=== PATIENT | female | born 1965 | race Native Hawaiian/Other Pacific Islander ===

== ENCOUNTER 2021-03-26 03:29 | Emergency (ER) | payer MEDICAID, SELFPAY ==
--- NOTE | 2021-03-26 03:33 | XRR_ITS ---
PROCEDURE INFORMATION: Exam: XR Chest Exam date and time: 03/26/2021 3:38 AM Age: 56 years old Clinical indication: Cough TECHNIQUE: Imaging protocol: XR of the chest. Views: 1 view. COMPARISON: CR Chest 1 view [id number] 10/02/2015 5:40 AM FINDINGS: Lungs: Unremarkable. No consolidation. Pleural spaces: Unremarkable. No pleural effusion. No pneumothorax. Heart/Mediastinum: There is mild cardiomegaly. Bones/joints: Unremarkable. XR/XR chest 1V portable [id number] IMPRESSION: Mild cardiomegaly.
[2021-03-26 03:38] VITALS: BP 204/158; PULSE 93; RESP 18; TEMP 37; O2SAT 100; BMI 27.3
--- NOTE | 2021-03-26 03:41 | ED_ITS ---
HPI - URI/Sore Throat General: Chief Complaint: General Medical Stated Complaint: cough Time Seen by Provider: 03/26/21 03:32 Source: patient Mode of arrival: ambulatory Limitations: no limitations History of Present Illness: HPI Narrative: 56-year-old female she states that she gets seasonal allergies and states she has been having allergy-like symptoms for the last month. States she had a postnasal drip along with rhinorrhea bilateral ear pain sore throat and a cough. She states that her cough is worsened over the month. She denies any production with her cough. She denies any fevers. Denies any sick contacts. She denies any worsening improving factors. She is in no distress here. She is hypertensive here but states she has not taken any of her blood pressure medicines in over a year. Associated symptoms: Reports ear or mastoid pain and nasal congestion; Deny abdominal pain, chills, chest pain, diarrhea, fever(s), headache(s), nausea or vomiting Review of Systems Const: Denies: fever(s), chills, body aches or change in appetite Eyes: Denies: blurry vision or eye discomfort ENMT: Reports: ear or mastoid pain, nasal discharge and nasal congestion Card: Denies: chest pain Resp: Reports: non-productive cough GI: Denies: abdominal pain, nausea, vomiting or diarrhea : Denies: dysuria Musc: Denies: neck pain or back pain Skin/Breast: Denies: rash Neuro: Denies: headache(s) Psych: Denies: depression Nik/Lymph: Denies: easy bruising All/Imm: Denies: urticaria Physical Exam Const: COMMON NORMALS: no acute distress, patient oriented x3 and healthy appearing HENMT: COMMON NORMALS: normocephalic, atraumatic, external ears normal, EAC's normal, TM's normal bilaterally and Normal external nose present HEAD & SCALP: normocephalic and atraumatic NOSE: Normal external nose present and Normal nares present EXTERNAL EAR: Yes external ears normal EXTERNAL AUDITORY CANAL: EAC's normal TYMPANIC MEMBRANE: TM's normal bilaterally THROAT: posterior oropharynx normal and uvula midline Eye: COMMON NORMALS: Equal, round and reactive pupils present and EOMs intact bilaterally PUPIL: Yes Equal, round and reactive pupils present Neck/C-Spine: COMMON NORMALS: full ROM and supple Chest: COMMONS NORMALS: normal inspection of the chest and normal palpation of entire chest wall Resp: COMMON NORMALS: normal respiratory effort, No retractions, No use of accessory muscles and clear to auscultation bilaterally AUSCULTATION: clear to auscultation bilaterally Cardio: COMMON NORMALS: regular rate, regular rhythm and No murmurs present (Cardio) RATE: regular rate RHYTHM: regular rhythm GI: COMMON NORMALS: Normal to inspection, nondistended, normoactive bowel sounds present, Soft to palpation, non-tender and no masses PALPATION: Yes Soft to palpation Extremity: COMMON NORMALS: normal to inspection and full ROM Neuro: COMMON NORMALS: patient oriented x3, moves all extremities and no focal motor deficits Psych: COMMON NORMALS: mental status grossly normal, Normal thought process present and cooperative THOUGHT PROCESS: Normal thought process present Skin: COMMON NORMALS: no rashes or lesions noted and no wounds GENERAL SKIN EXAM: no rashes or lesions noted Course Vital Signs: Vital signs: Vital Signs Temperature 98.6 F 03/26/21 04:22 Pulse Rate 89 03/26/21 04:22 Respiratory Rate 18 03/26/21 04:22 Blood Pressure 202/131 03/26/21 04:22 Pulse Oximetry 97 03/26/21 04:22 MDM - URI/Sore Throat MDM Narrative: Medical decision making narrative: Patient presents here with upper respiratory infection likely allergy rhinitis as well. She is well- appearing here and in no distress. Patient's x-ray here is negative. Patient given two doses of steroids here Kenalog and Decadron will prescribe her azithromycin for home. Patient is also hypertensive due to noncompliance. She has no related complaints. I will write her a new prescription for her blood pressure medicines that she was on and she is to take these and follow-up with PCP. Informed her is very important for her to take her medicines. She has no signs of pneumonia or heart failure here. She is in no distress. She is to return if worsening. Imaging Data^: CXR: Attestation: I personally reviewed and interpreted this imaging study as follows: My impression: No acute normality Discharge Plan Discharge Patient Disposition: Home Clinical Impression: Upper respiratory infection Qualifiers: URI type: unspecified URI Qualified Code(s): J06.9 - Acute upper respiratory infection, unspecified Hypertension Qualifiers: Hypertension type: essential hypertension Qualified Code(s): I10 - Essential (primary) hypertension Condition: Stable Prescriptions: New azithromycin 250 mg tablet See Rx Instructions .ROUTE .COMPLEX Qty: 6 RF: 0 carvedilol 12.5 mg tablet 12.5 mg PO BID Qty: 60 RF: 1 lisinopril 10 mg tablet 10 mg PO DAILY Qty: 60 RF: 1 furosemide 20 mg tablet 20 mg PO QAM Qty: 60 RF: 1 Discharge Orders: Discharge ED (Routine); Ordered 03/26/21 Ordered By: Dai Luna Referrals: Washington Gilman MD [Staff Physician] - 1-3 days Discharge Diet: Advance as tolerated Discharge Activity: Resume usual activity Patient Instructions: Upper Respiratory Infection (ED), Hypertension (ED) Coding Level of Care Code ED Radio Board Operator Announcer for Osmarg Fwd Exam Comprehensive
[2021-03-26] MEDS: FUROsemide 40 mg Tablet PO (03:59)
[2021-03-26] MEDS: metoprolol tartrate 25 mg Tablet PO (03:59)
[2021-03-26] MEDS: dexamethasone 10 mg/mL INJ IM (04:01)
[2021-03-26] MEDS: triamcinolone 40 mg/mL SDV 80 MG IM (04:20)
[2021-03-26 04:22] VITALS: BP 202/131; PULSE 89; RESP 18; TEMP 37; O2SAT 97
--- NOTE | 2021-03-26 10:36 | DCPLANNER ---
alteration manager had message to speak with patient about getting established with a primary care physician. alteration manager called phone number [phone], unable to speak with patient at this time, a voicemail was left for patient to return correctional casework specialist phone call.
== END 2021-03-26 04:22 | disposition home or self-care (01) ==
PROVIDERS: Emergency Provider Emergency Medicine
DX: J06.9 Acute upper respiratory infection, unspecified (principal); I10 Essential (primary) hypertension
CPT/HCPCS: 71045; 96372; 99283; J1100; J3301

== ENCOUNTER 2022-05-10 00:23 | Emergency (ER) | payer MEDICAID, SELFPAY ==
[2022-05-10 00:32] VITALS: BP 224/116; PULSE 103; RESP 18; TEMP 36.7; O2SAT 100; BMI 28.8
--- NOTE | 2022-05-10 01:09 | XRR_ITS ---
PROCEDURE INFORMATION: Exam: XR Chest Exam date and time: 05/10/2022 1:35 AM Age: 57 years old Clinical indication: Cough; Additional info: Cough congestion TECHNIQUE: Imaging protocol: Radiologic exam of the chest. Views: 1 view. COMPARISON: CR XR chest 1V portable [id number] 03/26/2021 3:34 AM FINDINGS: Lungs: Unremarkable. No consolidation. Pleural spaces: Unremarkable. No pleural effusion. No pneumothorax. Heart/Mediastinum: There is stable cardiomegaly. Bones/joints: Unremarkable. XR/XR chest 1V portable [id number] IMPRESSION: Cardiomegaly. No acute pulmonary abnormality.
--- NOTE | 2022-05-10 01:09 | ECG_ITS ---
[facility] Test Date: 2022-05-10 Pat Name: Abril Sosa Department: Room: Gender: Female Drum Attendant: : 1965 Requested By: Frank Mills Order Number: [id number] Vania MD: Henry Fragoso M.D. Measurements Intervals [place] Rate: 73 P: 61 FL: 186 QRS: 57 QRSD: 110 T: 44 QT: 411 QTc: 454 Interpretive Statements SINUS RHYTHM ANTERIOR MYOCARDIAL INFARCTION , OF INDETERMINATE AGE [40+ ms Q WAVE AND/OR ST/T ABNORMALITY IN V3/V4] Compared to ECG 09/28/2015 04:13:10 Myocardial infarct finding now present Sinus arrhythmia no longer present ST (T wave) deviation no longer present Prolonged QT interval no longer present Electronically Signed On 05-10-2022 8:08:12 CDT by Henry Fragoso M.D. [email or web address] [id number]
[2022-05-10] MEDS: amlodipine 10 mg Tablet PO (01:28)
[2022-05-10] MEDS: ondansetron 2 mg/ML SDV 2 mL 4 MG IVP (01:28)
[2022-05-10 01:32] VITALS: BP 215/123; PULSE 94; RESP 20; O2SAT 100
[2022-05-10 01:36] LABS: Basophils % 0.3 %; Eosinophils # 0.2 10^3/uL (0.0-0.8); Eosinophils % 1.9 %; Hematocrit 41.5 % (37.0-47.0); Hemoglobin 13.7 g/dL (11.5-15.3); Lymphocytes # 3.1 10^3/uL (0.8-4.8); Lymphocytes % 27.9 %; Mean Corpuscular Hemoglobin 29.1 pg (28.0-34.0); Mean Corpuscular Volume 88.1 fl (81-99); Mean Platelet Volume 12.5 fL (7.4-10.4); Monocytes # 0.7 10^3/uL (0.2-0.9); Monocytes % 6.1 %; Neutrophils # 6.98 10^3/uL (1.8-7.7); Neutrophils % 63.5 %; Nucleated Red Blood Cells % 0 %; Platelet Count 201 10^3/cmm (130-400); Red Blood Count 4.71 10^6/uL (4.1-5.3); Red Cell Distribution Width 12.9 % (12.1-15.1)
[2022-05-10 02:00] VITALS: BP 197/118; PULSE 90; RESP 23; O2SAT 98
[2022-05-10] MEDS: labetalol 5 mg/mL SDV 20mL 20 MG IVP (02:01)
[2022-05-10 02:08] LABS: Alanine Aminotransferase 11 U/L (0-33); Albumin Level 4.1 g/dL (3.5-5.2); Alkaline Phosphatase 104 IU/L (35-105); Aspartate Amino Transferase 13 U/L (0-32); Blood Urea Nitrogen 15 mg/dL (6-20); Carbon Dioxide 26 mmol/L (22-29); Chloride 104 mmol/L (98-107); Globulin 2.6 g/dL (1.3-4.6); Glomerular Filtration Rate 86.9 mL/min (90-130); Glucose 111 mg/dL (65-115); Osmolality Calculated 290 mOsm/kg (285-295); Sodium 139 mmol/L (136-145); Total Bilirubin 0.3 mg/dL (0.15-1.2); Total Protein 6.7 g/dL (6.6-8.7)
--- NOTE | 2022-05-10 02:22 | ED_ITS ---
HPI - URI/Sore Throat General: Chief Complaint: Headache Stated Complaint: HEADACHE Time Seen by Provider: 05/10/22 00:37 Source: patient History of Present Illness: 57-year-old female with multiple upper respiratory type complaints. She complains of congestion, cough, full feeling ears, and headache. Her blood pressure was also noted to be high. MD elicited complaint: cough, sore throat, rhinorrhea, nasal congestion and sinus pain Onset (ago): day(s) Consistency: constant and progressively worsening Severity: moderate Description of mucous: green Able to tolerate fluids by mouth: Yes Associated symptoms: Reports chills, congestion, cough, headache(s), nausea, rhinorrhea, sinus pain, sore throat and vomiting; Deny abdominal pain, chest pain, diarrhea, fever(s), short of breath or stiffness Treatments prior to arrival: antibiotics ( Patient antibiotics ) Review of Systems Const: Reports: chills; Denies: fever(s) ENMT: Reports: throat pain and sinus pain Card: Denies: chest pain GI: Reports: nausea and vomiting; Denies: abdominal pain or diarrhea Neuro: Reports: headache(s) Physical Exam Const: COMMON NORMALS: no acute distress HENMT: COMMON NORMALS: normocephalic, atraumatic and Normal external nose present HEAD & SCALP: normocephalic and atraumatic FACE & SINUS: face symmetric and sinus tenderness NOSE: Normal external nose present TYMPANIC MEMBRANE: TM normal on the left and TM abnormal TM laterality: right Details: obstructed by cerumen MOUTH: Normal oral and palatal mucosa present Eye: COMMON NORMALS: Equal, round and reactive pupils present and EOMs intact bilaterally PUPIL: Yes Equal, round and reactive pupils present Chest: CHEST: Yes Symmetrical chest wall rise Resp: COMMON NORMALS: normal respiratory effort, No use of accessory muscles and clear to auscultation bilaterally AUSCULTATION: clear to auscultation bilaterally Cardio: COMMON NORMALS: regular rate and regular rhythm RATE: regular rate RHYTHM: regular rhythm Neuro: SYL COMA SCALE: document GCS findings Syl coma scale eye opening: Spontaneous Syl coma scale verbal response: Orientated Syl coma scale motor response: Obey commands [place] coma scale total score: 15 SPEECH: speech normal Psych: COMMON NORMALS: mental status grossly normal Course Vital Signs: Vital signs: Vital Signs Temperature 98.1 F 05/10/22 00:32 Pulse Rate 74 05/10/22 03:00 Respiratory Rate 17 05/10/22 03:00 Blood Pressure 173/93 05/10/22 03:00 Pulse Oximetry 97 05/10/22 03:00 MDM - URI/Sore Throat Medical Decision Making Blood pressure is much improved. White blood cell count is 11, no left shift. CBC is otherwise normal. BMP is normal. she'll be treated for sinusitis. i suspect she did not see her pcp or get her bp medications refilled as she was instructed to do at her last er visit. Lab Data : 05/10/22 01:30 05/10/22 01:30 Radiology Impressions Chest X-Ray 05/10/22 01:09 IMPRESSION: Cardiomegaly. No acute pulmonary abnormality. Laboratory Results WBC 11.0 10^3/uL (4.0-10.0) H 05/10/22 01:30 RBC 4.71 10^6/uL (4.1-5.3) 05/10/22 01:30 Hgb 13.7 g/dL (11.5-15.3) 05/10/22 01:30 Hct 41.5 % (37.0-47.0) 05/10/22 01:30 MCV 88.1 fl (81-99) 05/10/22 01:30 MCH 29.1 pg (28.0-34.0) 05/10/22 01:30 MCHC 33.0 g/dL (30.0-36.0) 05/10/22 01:30 RDW 12.9 % (12.1-15.1) 05/10/22 01:30 Plt Count 201 10^3/cmm (130-400) 05/10/22 01:30 MPV 12.5 fL (7.4-10.4) H 05/10/22 01:30 Neut % (Auto) 63.5 % 05/10/22 01:30 Lymph % (Auto) 27.9 % 05/10/22 01:30 [place] % (Auto) 6.1 % 05/10/22 01:30 Eos % (Auto) 1.9 % 05/10/22 01:30 Baso % (Auto) 0.3 % 05/10/22 01:30 Neut # (Auto) 6.98 10^3/uL (1.8-7.7) 05/10/22 01:30 Lymph # (Auto) 3.1 10^3/uL (0.8-4.8) 05/10/22 01:30 [place] # (Auto) 0.7 10^3/uL (0.2-0.9) 05/10/22 01:30 Eos # (Auto) 0.2 10^3/uL (0.0-0.8) 05/10/22 01:30 Baso # (Auto) 0.0 10^3/uL (0.0-0.1) 05/10/22 01:30 Nucleated RBC % (auto) 0 % 05/10/22 01:30 Nucleated RBCs # 0.0 /100WBC 05/10/22 01:30 Sodium 139 mmol/L (136-145) 05/10/22 01:30 Potassium 4.0 mmol/L (3.5-5.1) 05/10/22 01:30 Chloride 104 mmol/L (98-107) 05/10/22 01:30 Carbon Dioxide 26 mmol/L (22-29) 05/10/22 01:30 Anion Gap 13.0 (5-19) 05/10/22 01:30 BUN 15 mg/dL (6-20) 05/10/22 01:30 Creatinine 0.7 mg/dL (0.5-0.9) 05/10/22 01:30 GFR Calculation 86.9 mL/min (90-130) L 05/10/22 01:30 Glucose 111 mg/dL (65-115) 05/10/22 01:30 Calculated Osmolality 290 mOsm/kg (285-295) 05/10/22 01:30 Calcium 9.0 mg/dL (8.5-10.5) 05/10/22 01:30 Total Bilirubin 0.3 mg/dL (0.15-1.2) 05/10/22 01:30 AST 13 U/L (0-32) 05/10/22 01:30 ALT 11 U/L (0-33) 05/10/22 01:30 Alkaline Phosphatase 104 IU/L (35-105) 05/10/22 01:30 Total Protein 6.7 g/dL (6.6-8.7) 05/10/22 01:30 Albumin 4.1 g/dL (3.5-5.2) 05/10/22 01:30 Globulin 2.6 g/dL (1.3-4.6) 05/10/22 01:30 Discharge Plan Discharge Patient Disposition: Home Clinical Impression: Headache, Sinusitis Condition: Stable Prescriptions: New doxycycline hyclate 100 mg capsule 100 mg PO BID 7 Days Qty: 14 0RF Continued carvedilol 12.5 mg tablet 12.5 mg PO BID Qty: 60 1RF Rx Instructions: must administer with a meal/food lisinopril 10 mg tablet 10 mg PO DAILY Qty: 60 1RF furosemide 20 mg tablet 20 mg PO QAM Qty: 60 1RF Discontinued azithromycin 250 mg tablet See Rx Instructions .ROUTE .COMPLEX Qty: 6 0RF Rx Instructions: take 500 mg today (day 1), then 250 mg for 4 days (days 2-5) Discharge Orders: Discharge ED (Routine); Ordered 05/10/22 Ordered By: Frank Paige Patient Instructions: Sinusitis (ED), Acute Headache (ED) Activity Restrictions/Additional Instructions: Refill your blood pressure medications. Check your blood pressure twice daily to ensure your blood pressure is staying normal. See your physician this coming week and follow-up. Antibiotics as directed for sinusitis. You are being tested for COVID-19. Call back in a few hours, to find out your results. If positive, you should quarantine at home for at least 5 days. Call your doctor, as there may be treatment options available. Coding Level of Care Code ED Laborer Sawmill for Tommy Fwjacques Exam Comprehensive
[2022-05-10 02:30] VITALS: BP 178/96; PULSE 74; RESP 16; O2SAT 93
[2022-05-10 03:00] VITALS: BP 173/93; PULSE 74; RESP 17; O2SAT 97
[2022-05-10 03:23] VITALS: BP 173/93; PULSE 75; RESP 17; O2SAT 97
[2022-05-10 04:32] LABS: Adenovirus Not Detected (NOT DETECT); Chlamydia Pneumoniae Not Detected (NOT DETECT); Coronavirus 229E,HKU1,NL63,OC4 Not Detected (NOT DETECT); Human Metapneumovirus Not Detected (NOT DETECT); Human Rhinovirus/Enterovirus Detected (NOT DETECT); Influenza A Not Detected (NOT DETECT); Influenza A H1 Not Detected (NOT DETECT); Influenza A H1-2009 Not Detected (NOT DETECT); Influenza A H3 Not Detected (NOT DETECT); Influenza B Not Detected (NOT DETECT); Mycoplasma Pneumoniae Not Detected (NOT DETECT); Parainfluenza Virus Type 1 Not Detected (NOT DETECT); Parainfluenza Virus Type 2 Not Detected (NOT DETECT); Parainfluenza Virus Type 3 Not Detected (NOT DETECT); Parainfluenza Virus Type 4 Not Detected (NOT DETECT); Respiratory Syncytial Virus A Not Detected (NOT DETECT); Respiratory Syncytial Virus B Not Detected (NOT DETECT); SARS-COV-2 Not Detected (NOT DETECT)
[2022-05-10 04:38] LABS: Human Metapneumovirus Not Detected (NOT DETECT); Human Rhinovirus/Enterovirus Detected (NOT DETECT); Results from Genmark
== END 2022-05-10 03:24 | disposition home or self-care (01) ==
PROVIDERS: Emergency Provider Emergency Medicine
DX: R51.9 Headache, unspecified (principal); J32.9 Chronic sinusitis, unspecified; Z20.822 Contact with and (suspected) exposure to COVID-19
CPT/HCPCS: 71045; 80053; 85025; 87635; 87801; 93005; 96374; 96375; 99285; J2405; J3490